=== PATIENT | male | born 1960 | race Caucasian/White ===

== ENCOUNTER 2017-05-07 06:57 | Day surgery (SDC) | payer OTHER ==
[2017-05-06 13:13] VITALS: BMI 40.6
[2017-05-07] MEDS ORDERED: PROPOFOL 20 ML ONE ×3 (07:49)
[2017-05-07] MEDS ORDERED: LIDOCAINE HCL 2% (20ML MULTI-DOSE VIAL) NR ONE (07:50)
[2017-05-07 08:31] VITALS: TEMP 97.7
--- NOTE | 2017-05-07 08:31 | PROC ---
Endoscopy Procedure Endoscopy procedure completed. Please see scanned procedure report.
[2017-05-07 09:25] VITALS: BP 136/60; PULSE 64
--- NOTE | 2017-05-08 12:50 | PATH ---
Surgical Pathology Report Patient Name: DHAVAL MUÑOZ [facility]. Rec. #: [id number] /Age/Gender: 1960 (Age: 56) / M Account: [id number] Location: U-ENDOSCOPY Taken: 05/07/2017 Received: 05/07/2017 Reported: 05/08/2017 Physicians: Golden Mcqueen M.D. Specimen(s) Received A: SECOND PORTION OF DUODENUM BX B: BX ANTRUM/BODY C: BX GE JUNCTION Clinical History The way Preoperative diagnosis: GERD Postoperative diagnosis: Gastritis Final Diagnosis A. DUODENUM, SECOND PORTION, BIOPSY: DUODENAL MUCOSA WITHOUT SIGNIFICANT PATHOLOGIC FINDINGS. B. STOMACH, ANTRUM/BODY, BIOPSY: GASTRIC ANTRAL AND BODY MUCOSA WITH MILD CHRONIC GASTRITIS. IMMUNOHISTOCHEMICAL STAIN FOR H. PYLORI IS NEGATIVE. C. GASTROESOPHAGEAL (GE) JUNCTION, BIOPSY: SQUAMOCOLUMNAR MUCOSA WITH MILD CHRONIC INFLAMMATION AND CHANGES OF MILD TO MODERATE REFLUX ESOPHAGITIS. NO INTESTINAL METAPLASIA OR DYSPLASIA IDENTIFIED. Electronically Signed Christi Vargas M.D. Gross Description A. Received in formalin, labeled "biopsy second portion of duodenum" are 2 knight, irregular portions of soft tissue measuring 0.3 and 0.4 cm. in greatest dimension. The specimens are submitted in toto in one cassette. B. Received in formalin, labeled "biopsy antrum/body" are 3 knight, irregular portions of soft tissue ranging from 0.1-0.4 cm. in greatest dimension. The specimens are submitted in toto in one cassette. C. Received in formalin, labeled "biopsy GE junction" are 3 knight, irregular portions of soft tissue ranging from 0.3-0.5 cm. in greatest dimension. The specimens are submitted in toto in one cassette. DL/05/07/2017 saudi05/07/2017
== END 2017-05-07 09:25 | disposition home or self-care (01) ==
LOC: JASU-ENDO 06:57
PROVIDERS: ATTEND Internal Medicine Gastroenterology
PROC: 0DB68ZX Excision of Stomach, Via Natural or Artificial Opening Endoscopic, Diagnostic (ICD-10-PCS; 2017-05-07)
PROC: 0DB58ZX Excision of Esophagus, Via Natural or Artificial Opening Endoscopic, Diagnostic (ICD-10-PCS; 2017-05-07)
PROC: 0DB98ZX Excision of Duodenum, Via Natural or Artificial Opening Endoscopic, Diagnostic (ICD-10-PCS; principal; 2017-05-07 08:00)
DX: K29.70 Gastritis, unspecified, without bleeding (principal)
CPT/HCPCS: 88305-TC; 88342-TC

== ENCOUNTER 2017-05-24 11:49 | Emergency (ER) | payer OTHER ==
[2017-05-24 12:01] VITALS: TEMP 98.5; BMI 40.6
--- NOTE | 2017-05-24 12:19 | PDOC ---
Attending Attestation - Resident Resident Name: Modesto Banegas - HPI HPI: 05/26/17 02:15 Pt presents to the ED complaining of pleuritic chest pain. Pain has been intermittent for several days. Denies fever, nausea or vomiting. multiple cardiac risk factors, as described in previous note. - Physicial Exam PE: 05/26/17 02:51 Agree with resident exam. Patient is well appearing, in no acute distress. Lungs are clear. - Medical Decision Making 05/26/17 02:51 Pt presents to the ED complaining of chest pain. EKG is unchanged, initial troponin is negative, labs are otherwise normal. Case discussed with patient's agricultural service worker, who believes that this pain is chronic and that the patient can be safely discharged with follow up in his office tomorrow.
[2017-05-24 12:50] LABS: BASO % 1.1 % (0-2.0); EOS % 2.4 % (0-4.5); HEMATOCRIT 44.5 % (35.4-49); HEMOGLOBIN 14.5 GM/dl (11.7-16.9); LYMPH % 24.9 % (8-40); MCH 28.3 pg (25.7-33.7); MCHC 32.7 g/dl (32.0-35.9); MEAN CELL VOLUME 86.6 fl (80-96); MEAN PLT VOLUME 10.3 fl (7.5-11.1); NEUT % 65.6 % (42.8-82.8); PLATELET COUNT 213 K/MM3 (134-434); RBC 5.13 M/mm3 (4.00-5.60); RDW 12.3 % (11.9-15.9); WHITE BLOOD COUNT 6.8 K/mm3 (4.0-10.8)
--- NOTE | 2017-05-24 12:57 | PDOC ---
History of Present Illness - General Chief Complaint: Chest Pain Stated Complaint: SOB, CHEST PAIN Time Seen by Provider: 05/24/17 12:19 History Source: Patient Exam Limitations: No Limitations - History of Present Illness Initial Comments: 05/24/17 12:54 The patient is a 56M with a PMH of HTN, DM, and a-fib in the past (not on blood thinners) who presents to the ER with complaints of 2 days of difficulty taking a deep breath and associated CP. The patient states that he feels like "he cannot take a deep breath". He occasionally has a sensation of chest pain which is described as stabbing, not better or worse with anything, no radiation, located in his L anterior chest, and lasts for only a few seconds. He denies any cough, nausea, vomiting, fever, or chills. The patient's partner reveals that 2 days ago, his neighbor called him over because she was not feeling well and in front of him. The patient denies any stressors 2/2 to this but the partner states he is "acting differently" and "not himself". Past History - Past Medical History Allergies/Adverse Reactions: Allergies Allergy/AdvReac Type Severity Reaction Status Date / Time No Known Drug Allergies Allergy Verified 05/24/17 11:50 Home Medications: Ambulatory Orders Amlodipine/Valsartan/Hcthiazid [Exforge Hct 10-320-25 mg Tab] 1 tab PO DAILY Esomeprazole Magnesium [Nexium 24Hr] 40 mg PO DAILY 05/06/17 Metoprolol Succinate [Toprol Xl] 150 mg PO BID 05/06/17 Multivitamin [One Daily] 1 each PO DAILY 05/06/17 [place]-3 Acid Ethyl Esters [Lovaza] 1 gm PO BID 05/06/17 Sitagliptin Phosphate [Januvia] 100 mg PO DAILY 05/06/17 Amoxicillin - [Amoxicillin 500mg Capsule -] 500 mg PO TID 05/24/17 Aspirin [Ecotrin] 325 mg PO HS 05/24/17 Fenofibrate Nanocrystallized [Tricor] 145 mg PO DAILY 05/24/17 Anemia: No Asthma: No Cancer: No Cardiac Disorders: Yes (TRANSIENT HX OF ATRIAL FIBRILLATION) CVA: No COPD: No CHF: No DVT: No Dementia: No Diabetes: Yes (NIDDM) GI Disorders: Yes (CHRONIC GASTRITIS, COLON POLYPS) Disorders: No HTN: Yes Hypercholesterolemia: Yes (DYLIPIDEMIA) Liver Disease: No Seizures: No Thyroid Disease: No - Surgical History Abdominal Surgery: Yes (UMBILICAL HERNIA WITH MESH PLACED) Appendectomy: No Cardiac Surgery: No Cholecystectomy: Yes Lung Surgery: No Neurologic Surgery: No Orthopedic Surgery: Yes (ROTATOR CUFF REPAIR , LEFT ELBOW SX) - Immunization History Immunization Up to Date: Yes - Suicide/Smoking/Psychosocial Hx Smoking History: Former smoker Have you smoked in the past 12 months: No If you are a former smoker, when did you quit?: 30YRS AGO Information on smoking cessation initiated: No Hx Alcohol Use: No Drug/Substance Use Hx: No Substance Use Type: None Hx Substance Use Treatment: No Review of Systems - Review of Systems Able to Perform ROS?: Yes Comments:: 05/24/17 13:01 GENERAL/CONSTITUTIONAL: No fever or chills. No weakness. HEAD, EYES, EARS, NOSE AND THROAT: No change in vision. No ear pain or discharge. No sore throat. CARDIOVASCULAR: Positive for chest pain. No palpitations or lightheadedness. RESPIRATORY: Positive for shortness of breath. No cough, wheezing, or hemoptysis. GASTROINTESTINAL: No nausea, vomiting, diarrhea, constipation, or abdominal pain. GENITOURINARY: No dysuria, frequency, hematuria, or change in urination. MUSCULOSKELETAL: No joint or muscle swelling or pain. No neck or back pain. SKIN: No rash or lesions. NEUROLOGIC: No headache, numbness, tingling, weakness, loss of consciousness, or change in strength/sensation. ENDOCRINE: No increased thirst. No abnormal weight change. HEMATOLOGIC/LYMPHATIC: No anemia, easy bleeding, or history of blood clots. ALLERGIC/IMMUNOLOGIC: No hives or skin allergy. Is the patient limited Peruvian proficient: No *Physical Exam - Vital Signs Last Vital Signs Temp Pulse Resp BP Pulse Ox 98.5 F 64 18 176/90 98 05/24/17 11:50 05/24/17 11:50 05/24/17 11:50 05/24/17 11:50 05/24/17 11:50 - Physical Exam Comments: 05/24/17 13:02 GENERAL: Well developed, well nourished. Awake and alert. No acute distress. HEENT: Normocephalic, atraumatic. Hearing grossly normal. Moist mucous membranes. PERRLA, EOMI. No conjunctival pallor. Sclera are non-icteric. NECK: Supple. Full ROM. No JVD. CARDIOVASCULAR: Regular rate and rhythm. No murmurs, rubs, or gallops. PULMONARY: No evidence of respiratory distress. Lungs clear to auscultation bilaterally. No wheezing, rales or rhonchi. ABDOMINAL: Soft. Non-tender. Non-distended. No rebound or guarding. GENITOURINARY: No CVA tenderness bilaterally. MUSCULOSKELETAL: Normal range of motion at all joints. No bony deformities or tenderness. EXTREMITIES: No cyanosis. No clubbing. No edema. No calf tenderness. SKIN: Warm and dry. Normal capillary refill. No rashes. No jaundice. NEUROLOGICAL: Alert, awake, appropriate. Cranial nerves 2-12 intact. Normal speech. Gait is normal without ataxia. PSYCHIATRIC: Cooperative. Good eye contact. Appropriate mood and affect. Heart Score/ECG Review #1 ECG reviewed & interpreted by me at: 13:03 General ECG Interpretation: Sinus Rhythm, Normal Rate, Normal Intervals, No acute ischemic changes Compared to previous ECG there are: No significant change 05/24/17 13:04 NSR Rate 64 TX 164 QRS 84 QTc 418 ED Treatment Course - LABORATORY CBC & Chemistry Diagram: 05/24/17 12:22 05/24/17 12:22 - ADDITIONAL ORDERS Additional order review: 05/24/17 12:22 RBC 5.13 MCV 86.6 MCHC 32.7 RDW 12.3 MPV 10.3 Neutrophils % 65.6 Lymphocytes % 24.9 Monocytes % 6.0 Eosinophils % 2.4 Basophils % 1.1 - RADIOLOGY Radiology Studies Ordered: Category Date Time Status CHEST PA & LAT [RAD] Stat Radiology 05/24/17 12:29 Taken Medical Decision Making - Medical Decision Making 05/24/17 13:04 The patient is a 56M with a PMH of HTN and DM who presents with atypical CP and SOB. EKG is negative. Pending labs/imaging. I have a low concern for ACS as there is a normal EKG but will r/o with troponins. D/t the patient's comorbidities, his disposition may be an admission to r/o cardiac causes of his CP. Cait: Lainey 05/24/17 13:19 CXR negative. CBC, CMP and trop negative. Will page Dr. Retana. 05/24/17 13:28 I have spoken with Dr. Tong and he states that he is familiar with this patient who presents with CP, and usually a negative EKG and labs. He will f/u outpatient. Pt agrees and is ready for d/c. *DC/Admit/Observation/Transfer Diagnosis at time of Disposition: Atypical chest pain - Discharge Dispostion Disposition: HOME Condition at time of disposition: Stable Admit: No - Referrals Referrals: Javad Aguilar MD [Primary Care Provider] - - Patient Instructions Printed Discharge Instructions: DI for Atypical Chest Pain Additional Instructions: Please return to the ER if symptoms persist, worsen, or new symptoms arise. Please follow up with Dr. Hanks. Call his office tomorrow to make an appointment. Please return to the ER if you have any signs or symptoms of chest pain, shortness of breath, uncontrollable fever, chills, nausea, vomiting, numbness, tingling, or weakness in any part of your body, changes in vision, or slurred speech. - Post Discharge Activity
[2017-05-24 12:58] LABS: ALBUMIN 3.7 g/dl (3.5-5.0); ALK PHOS 42 U/L (32-92); ANION GAP 7 (8-16); BILIRUBIN,TOTAL 0.7 mg/dl (0.2-1.0); BLOOD UREA NITROGEN 12 mg/dl (7-18); CALCIUM 9.2 mg/dl (8.4-10.2); CHLORIDE 99 mmol/L (98-107); CO2 26 mmol/L (22-28); CREATININE 0.8 mg/dl (0.6-1.3); GLUCOSE,RANDOM 242 mg/dl (74-106); SGOT/AST 47 U/L (10-42); SGPT/ALT 48 U/L (10-40); SODIUM 132 mmol/L (136-145); TOT PROT 6.7 g/dl (6.4-8.3)
[2017-05-24 13:15] LABS: ACTIVATED PTT 28.8 SECONDS (24.0-38.9)
[2017-05-24 13:19] VITALS: BP 150/89; PULSE 58
[2017-05-24 13:19] LABS: INR 1.13 (0.82-1.09); PROTHROMBIN TIME (PATIENT) 12.6 SEC (10.2-13.0)
--- NOTE | 2017-05-25 14:03 | EKG ---
Test Reason : Blood Pressure : / mmHG Vent. Rate : 064 BPM Atrial Rate : 064 BPM P-R Int : 164 ms QRS Dur : 084 ms QT Int : 406 ms P-R-T Axes : 038 -01 023 degrees QTc Int : 418 ms NORMAL SINUS RHYTHM NONSPECIFIC T WAVE ABNORMALITY WHEN COMPARED WITH ECG OF 22-DEC-2014 19:34, VENT. RATE HAS DECREASED BY 41 BPM Confirmed by SHANITA SAN MD ([id number]) on 05/25/2017 2:03:10 PM Referred By: THIAGO Confirmed By:SHANITA SAN MD
== END 2017-05-24 13:41 | disposition home or self-care (01) ==
LOC: FER 11:49
DX: R07.89 Other chest pain (principal); I10 Essential (primary) hypertension; E78.5 Hyperlipidemia, unspecified; I48.91 Unspecified atrial fibrillation
CPT/HCPCS: 36415; 71046-TC-FY; 80053; 82550; 84484; 85025; 85610; 85730; 93005; 99284-25

== ENCOUNTER 2017-06-11 18:18 | Emergency (ER) | payer OTHER ==
[2017-06-11 18:29] VITALS: BP 182/110; TEMP 98; BMI 40.6
--- NOTE | 2017-06-11 18:29 | PDOC ---
Rapid Medical Evaluation Time Seen by Provider: 06/11/17 18:21 Medical Evaluation: Allergies Allergy/AdvReac Type Severity Reaction Status Date / Time No Known Drug Allergies Allergy Verified 05/24/17 11:50 06/11/17 18:21 The patient presents with a chief complaint of: Difficulty breathing, sent by Dr. Aguilar to r/o PE. Pt. states that he feels like he just cant catch is breath. Been feeling short of breath for two weeks. Admits to dry cough. No pulmonary PMH. Hx of HTN, HLD, GERD. Recent cath done 05/30/17 at [facility] and states there were no blockages. I have performed a brief in-person evaluation of this patient; Pertinent physical exam findings: ambulatory, in no respiratory distress. BP 180 /110. CTAB. RRR I have ordered the following: CBC, CMP, D-dimer, troponin, pt/inr, BNP, EKG, Chest x-ray The patient will proceed to the ED for further evaluation. Discharge Disposition - Referrals Referrals: Javad Aguilar MD [Primary Care Provider] - - Patient Instructions - Post Discharge Activity
[2017-06-11 19:04] LABS: BASO % 1.4 % (0-2.0); EOS % 2.6 % (0-4.5); HEMATOCRIT 47.7 % (35.4-49); HEMOGLOBIN 16.1 GM/dL (11.7-16.9); LYMPH % 29.5 % (8-40); MCH 28.6 pg (25.7-33.7); MCHC 33.7 g/dl (32.0-35.9); MEAN CELL VOLUME 84.9 fl (80-96); MEAN PLT VOLUME 9.6 fl (7.5-11.1); MONO % 7.3 % (3.8-10.2); NEUT % 59.2 % (42.8-82.8); PLATELET COUNT 258 K/MM3 (134-434); RBC 5.62 M/mm3 (4.00-5.60); RDW 13.5 % (11.9-15.9)
--- NOTE | 2017-06-11 19:27 | PDOC ---
History of Present Illness - General Chief Complaint: Shortness of Breath Stated Complaint: PCP SENT/BLOOD CLOT Time Seen by Provider: 06/11/17 18:21 - History of Present Illness Initial Comments: 06/11/17 19:44 The patient is a 56 year old male with a history of HTN, HLD, DM who presents for evaluation of SOB by his PCP. The patient reports a 2 week history of worsening SOB. He states that he recently had a cardiac cath and endoscopy on which were reportedly negative for any acute pathology. The patient's primary sent him to the ED for evaluation for concern for PE. The patient denies any chest pain, leg swelling, or recent long travel or immobilization. He otherwise denies fevers, chills, nausea, vomiting, abdominal pain, or changes with urination or bowel movements. Past History - Past Medical History Allergies/Adverse Reactions: Allergies Allergy/AdvReac Type Severity Reaction Status Date / Time No Known Drug Allergies Allergy Verified 06/11/17 18:22 Home Medications: Ambulatory Orders Amlodipine/Valsartan/Hcthiazid [Exforge Hct 10-320-25 mg Tab] 1 tab PO DAILY Esomeprazole Magnesium [Nexium 24Hr] 40 mg PO DAILY 05/06/17 Metoprolol Succinate [Toprol Xl] 150 mg PO BID 05/06/17 Multivitamin [One Daily] 1 each PO DAILY 05/06/17 [place]-3 Acid Ethyl Esters [Lovaza] 1 gm PO BID 05/06/17 Sitagliptin Phosphate [Januvia] 100 mg PO DAILY 05/06/17 Amoxicillin - [Amoxicillin 500mg Capsule -] 500 mg PO TID 05/24/17 Aspirin [Ecotrin] 325 mg PO HS 05/24/17 Fenofibrate Nanocrystallized [Tricor] 145 mg PO DAILY 05/24/17 Anemia: No Asthma: No Cancer: No Cardiac Disorders: Yes (TRANSIENT HX OF ATRIAL FIBRILLATION) CVA: No COPD: No CHF: No DVT: No Dementia: No Diabetes: Yes (NIDDM) GI Disorders: Yes (CHRONIC GASTRITIS, COLON POLYPS) Disorders: No HTN: Yes Hypercholesterolemia: Yes (DYLIPIDEMIA) Liver Disease: No Seizures: No Thyroid Disease: No - Surgical History Abdominal Surgery: Yes (UMBILICAL HERNIA WITH MESH PLACED) Appendectomy: No Cardiac Surgery: No Cholecystectomy: Yes Lung Surgery: No Neurologic Surgery: No Orthopedic Surgery: Yes (ROTATOR CUFF REPAIR , LEFT ELBOW SX) - Immunization History Immunization Up to Date: Yes - Suicide/Smoking/Psychosocial Hx Smoking History: Former smoker Have you smoked in the past 12 months: No If you are a former smoker, when did you quit?: 30YRS AGO Information on smoking cessation initiated: No Hx Alcohol Use: No Drug/Substance Use Hx: No Substance Use Type: None Hx Substance Use Treatment: No Review of Systems - Review of Systems Comments:: 06/11/17 19:47 Constitutional: No fevers, chills, fatigue, malaise HEENT: No Rhinorrhea, nasal congestion, visual changes Cardiovascular: No chest pain, syncope, palpitations, lightheadedness Respiratory: Nonproductive cough, SOB. No Hemoptysis, Gastrointestinal: No Abdominal pain, Nausea, Vomiting, Constipation, Diarrhea, Melena Genitourinary: No Dysuria, Frequency, Urgency, Hesitancy, Hematuria, Flank pain Musculoskeletal: No Myalgia, arthralgia Skin: No rashes, itching, bruising, pallor Neurologic: No Headache, Dizziness, Numbness, Weakness, or Tingling Psychiatric: No Hallucinations. No SI or HI *Physical Exam - Vital Signs Last Vital Signs Temp Pulse Resp BP Pulse Ox 98 F 86 19 182/110 97 06/11/17 18:22 06/11/17 18:22 06/11/17 18:22 06/11/17 18:22 06/11/17 18:22 - Physical Exam Comments: 06/11/17 19:47 General Appearance: Nourished. Obese. No Apparent Distress HEENT: EOMI, ESTEFANI. No Pharyngeal Erythema, Tonsillar Exudate, Tonsillar Erythema Neck: No Cervical Lymphadenopathy Respiratory/Chest: Lungs Clear, Normal Breath Sounds. No Crackles, Rales, Rhonchi, Wheezing Cardiovascular: Regular Rhythm, Regular Rate. No JVD, Murmur, Gallops, Rubs Gastrointestinal/Abdominal: Normal Bowel Sounds, Soft. No Guarding, Rebound, Tenderness Musculoskeletal: No CVA Tenderness Extremity: No notable lower extremity edema. Normal Capillary Refill Integumentary: Normal Color, Dry, Warm Neurologic: Fully Oriented, Alert, Normal Mood/Affect, Normal Response, Heart Score/ECG Review #1 ECG reviewed & interpreted by me at: 19:48 General ECG Interpretation: Sinus Rhythm, Normal Rate, Normal Intervals, No acute ischemic changes ED Treatment Course - LABORATORY CBC & Chemistry Diagram: 06/11/17 18:51 06/11/17 18:51 - ADDITIONAL ORDERS Additional order review: 06/11/17 18:51 RBC 5.62 H MCV 84.9 MCHC 33.7 RDW 13.5 MPV 9.6 Neutrophils % 59.2 Lymphocytes % 29.5 Monocytes % 7.3 Eosinophils % 2.6 Basophils % 1.4 Medical Decision Making - Medical Decision Making 06/11/17 19:48 The patient is a 56 year old male with a history of HTN, HLD, DM who presents for evaluation of SOB by his PCP. Differential includes but is not limited to: PE, CHF, COPD, pneumonia, infectious, metabolic derangement. Given the patient' s prolonged symptoms we will obtain a cbc, cmp, bnp, troponin, and d-dimer to evaluate for other etiologies. We will continue to monitor and reassess in the meantime. 06/11/17 21:08 CBC, cmp, bnp, troponin, d-dimer are unremarkable. Chest plain film is unremarkable as preliminarily read by the ER physician pending official radiology read. The patient reports some improvement in his symptoms after a duoneb treatment. We are comfortable discharging the patient home with primary care provider follow up tomorrow. We discussed the results and the plan with the patient who voiced understanding and is agreeable with the plan. *DC/Admit/Observation/Transfer Diagnosis at time of Disposition: SOB (shortness of breath) - Discharge Dispostion Disposition: HOME Condition at time of disposition: Good Admit: No - Referrals Referrals: Javad Aguilar MD [Primary Care Provider] - - Patient Instructions Printed Discharge Instructions: DI for Shortness of Breath Additional Instructions: Please return to the ER if you experience concerning or worsening symptoms including worsening difficulty breathing, fevers, or chest pain. Your lab results and x-rays were normal here in the ER. Your blood work does not show any signs of blood clot in your lungs. Please call to schedule a follow up appointment with your primary care provider within 2-3 days to discuss further management of your symptoms. - Post Discharge Activity
[2017-06-11 19:30] LABS: INR 1.12 (0.82-1.09); PROTHROMBIN TIME (PATIENT) 12.6 SEC (9.98-11.88)
[2017-06-11 19:36] LABS: ALBUMIN 4.1 g/dl (3.4-5.0); ALK PHOS 54 U/L (45-117); ANION GAP 8 (8-16); BILIRUBIN,TOTAL 0.8 mg/dL (0.2-1.0); BLOOD UREA NITROGEN 16 mg/dL (7-18); CALCIUM 9.1 mg/dL (8.5-10.1); CHLORIDE 98 mmol/L (98-107); CO2 28 mmol/L (21-32); CREATININE 1.1 mg/dL (0.7-1.3); GLUCOSE,RANDOM 173 mg/dL (74-106); SGPT/ALT 55 U/L (12-78); SODIUM 134 mmol/L (136-145); TOT PROT 7.9 g/dl (6.4-8.2)
--- NOTE | 2017-06-11 19:36 | PDOC ---
Attending Attestation - Resident Resident Name: Ryland Horn - ED Attending Attestation I have performed the following: I have examined & evaluated the patient, The case was reviewed & discussed with the resident, I agree w/resident's findings & plan, Exceptions are as noted <Waldo Ibarra - Last Filed: 06/11/17 19:36> - HPI HPI: 06/11/17 19:44 The patient is a 56 year old male, with a significant past medical history of hypertension, hyperlipidemia, and diabetes, who presents to the emergency department sent by Dr. Aguilar for evaluation of 2 weeks of worsening shortness of breath. Patient reports his PCP sent him out of concern of possible CHF vs PE. Patient states he feels like he cannot catch his breath. He denies any associated chest pain, diaphoresis, palpitations, or lower extremity edema. He denies any recent travel or sick contacts. Patient endorses a dry cough, but denies any fever, chills, headache, or dizziness. Patient reports recent Cardiac Catheterization at [facility] [place] on 05/30/17, which demonstrated no blockages. He denies any abdominal pain, nausea, or vomiting. He denies any dysuria, hematuria, frequency, or urgency. Allergies: NKDA Past Surgical History: Umbilical hernia repair. Rotator cuff repair, Left elbow surgery, Cholecystectomy Social History: Former smoker. No ETOH or recreational drug use. PCP: Dr. Aguilar - Medical Decision Making 06/11/17 19:44 Documentation prepared by Coleman Falk, acting as certified medical biller for Waldo Ibarra DO. <Coleman Falk - Last Filed: 06/11/17 19:44>
[2017-06-11 19:38] LABS: N-TERMINAL BNP 31.89 pg/ml (5-125)
[2017-06-11 19:47] LABS: POTASSIUM 4.3 mmol/L (3.5-5.1); SGOT/AST 61 U/L (15-37)
[2017-06-11] MEDS ORDERED: ALBUTEROL SO4 2.5/IPRATROPIUM 0.5 INH SOL 3 ML VIAL.NEB. NEB ONE ×2 (20:23→20:29)
[2017-06-11 21:19] VITALS: PULSE 78
--- NOTE | 2017-06-12 09:35 | EKG ---
Test Reason : Blood Pressure : / mmHG Vent. Rate : 082 BPM Atrial Rate : 082 BPM P-R Int : 132 ms QRS Dur : 086 ms QT Int : 374 ms P-R-T Axes : 047 001 043 degrees QTc Int : 436 ms NORMAL SINUS RHYTHM NORMAL ECG WHEN COMPARED WITH ECG OF 24-MAY-2017 11:58, NO SIGNIFICANT CHANGE WAS FOUND Confirmed by MIKE CANCINO MD ([id number]) on 06/12/2017 9:35:23 AM Referred By: Confirmed By:MIKE CANCINO MD
== END 2017-06-11 21:19 | disposition home or self-care (01) ==
LOC: JER 18:18
PROC: 3E0F7GC Introduction of Other Therapeutic Substance into Respiratory Tract, Via Natural or Artificial Opening (ICD-10-PCS; principal; 2017-06-11)
DX: R06.02 Shortness of breath (principal); I25.10 Atherosclerotic heart disease of native coronary artery without angina pectoris; Z98.61 Coronary angioplasty status; I10 Essential (primary) hypertension; E11.9 Type 2 diabetes mellitus without complications; Z79.84 Long term (current) use of oral hypoglycemic drugs; E78.00 Pure hypercholesterolemia, unspecified; K21.9 Gastro-esophageal reflux disease without esophagitis; K29.50 Unspecified chronic gastritis without bleeding; Z79.82 Long term (current) use of aspirin
CPT/HCPCS: 36415; 71046-TC-FY; 80053; 82550; 83880; 84484; 85025; 85379; 85610; 93005; 93010; 99282-25

== ENCOUNTER 2019-03-27 12:10 | Emergency (ER) | payer OTHER ==
[2019-03-27 12:28] VITALS: BMI 40.6
[2019-03-27] MEDS ORDERED: SODIUM CHLORIDE 1,000 ML IV STA (13:05)
--- NOTE | 2019-03-27 13:26 | PDOC ---
History of Present Illness - General Chief Complaint: Respiratory Stated Complaint: COUGH, BACK PAIN Time Seen by Provider: 03/27/19 12:21 History Source: Patient Exam Limitations: No Limitations - History of Present Illness Initial Comments: 03/27/19 13:21 CHIEF COMPLAINT: 58-year-old man complaining of left paralumbar pain on and off for a couple of days HISTORY OF PRESENT ILLNESS: 58-year-old man Past medical history of hypertension, diabetes, hyperlipidemia, atrial fibrillation Recent treatment for wheezing and cough with prednisone, recently completed course Patient presents now complaining of left paralumbar pain in the mid lumbar region, intermittent, not related to movement or breathing, sometimes comes very sharp and sudden. Patient states the pain is 7 out of 10, took Advil without relief. No urinary complaints, no hematuria, no dysuria. No change in pain with movement. No change in pain with deep breathing. Cough remains persistent, nonproductive, no sputum, no fever, no pleuritic chest pain. REVIEW OF SYSTEMS: GENERAL/CONSTITUTIONAL: No fever or chills. No weakness. No weight change. HEAD, EYES, EARS, NOSE AND THROAT: No change in vision. No ear pain or discharge. No sore throat. CARDIOVASCULAR: No chest pain or shortness of breath. RESPIRATORY: Positive cough and recent wheezing. No hemoptysis. No pleuritic pain. GASTROINTESTINAL: No nausea, vomiting, diarrhea or constipation. No rectal bleeding. GENITOURINARY: No dysuria, frequency, or change in urination. MUSCULOSKELETAL: Positive left paralumbar pain, not much change with movement. No neck pain. SKIN AND BREASTS: No rash or easy bruising. NEUROLOGIC: No headache, vertigo, loss of consciousness, or loss of sensation. PSYCHIATRIC: No depression or anxiety. ENDOCRINE: No increased thirst. No abnormal weight change. HEMATOLOGIC/LYMPHATIC: No anemia, easy bleeding, or history of blood clots. ALLERGIC/IMMUNOLOGIC: No hives or skin allergy. No latex allergy. Past History - Past Medical History Allergies/Adverse Reactions: Allergies Allergy/AdvReac Type Severity Reaction Status Date / Time No Known Drug Allergies Allergy Verified 03/27/19 12:13 Home Medications: Ambulatory Orders Amlodipine/Valsartan/Hcthiazid [Gtgfl-Rqehx-Eocd 10-320-25 mg] 1 each PO DAILY 03/27/19 Aspirin [Aspirin EC] 325 mg PO DAILY 03/27/19 Beta-Carotene(A) W-C and E/Min [Ocuvite (Nf) -] 1 tab PO DAILY 03/27/19 Carvedilol 25 mg PO BID 03/27/19 Cholecalciferol (Vitamin D3) [Vitamin D -] 1,000 unit PO DAILY 03/27/19 Esomeprazole Magnesium [Nexium 24Hr] 40 mg PO ASDIR 03/27/19 Fenofibrate Nanocrystallized [Tricor] 145 mg PO DAILY 03/27/19 Hydralazine HCl 50 mg PO TID 03/27/19 Levothyroxine [Synthroid -] 25 mcg PO DAILY 03/27/19 Naproxen [Naprosyn -] 500 mg PO BID PRN #14 tablet 03/27/19 [place]-3 Acid Ethyl Esters [Lovaza -] 4,000 mg PO DAILY 03/27/19 Rosuvastatin Calcium [Crestor] 10 mg PO DAILY 03/27/19 Semaglutide [Ozempic] 0.25 mg SQ WEEKLY 03/27/19 Anemia: No Asthma: No Cancer: No Cardiac Disorders: Yes (TRANSIENT HX OF ATRIAL FIBRILLATION) CVA: No COPD: No CHF: No DVT: No Dementia: No Diabetes: Yes (NIDDM) GI Disorders: Yes (CHRONIC GASTRITIS, COLON POLYPS) Disorders: No HTN: Yes Hypercholesterolemia: Yes (DYSLIPIDEMIA) Liver Disease: No Seizures: No Thyroid Disease: No - Surgical History Abdominal Surgery: Yes (UMBILICAL HERNIA WITH MESH PLACED) Appendectomy: No Cardiac Surgery: No Cholecystectomy: Yes Lung Surgery: No Neurologic Surgery: No Orthopedic Surgery: Yes (ROTATOR CUFF REPAIR , LEFT ELBOW SX) - Immunization History Immunization Up to Date: Yes - Psycho Social/Smoking Cessation Hx Smoking History: Never smoked Have you smoked in the past 12 months: No If you are a former smoker, when did you quit?: 30YRS AGO Information on smoking cessation initiated: No Hx Alcohol Use: No Drug/Substance Use Hx: No Substance Use Type: None Hx Substance Use Treatment: No *Physical Exam - Vital Signs Last Vital Signs Temp Pulse Resp BP Pulse Ox 98.6 F 89 20 157/93 96 03/27/19 12:10 03/27/19 12:10 03/27/19 12:10 03/27/19 12:10 03/27/19 12:10 - Physical Exam 12/08/19 13:24 GENERAL: The patient is awake, alert, and fully oriented, in no acute distress. He is obese with a large, round abdomen. HEAD: Normal with no signs of trauma. EYES: Pupils equal, round and reactive to light, extraocular movements intact, sclera anicteric, conjunctiva clear. ENT: Ears normal, nares patent, oropharynx clear without exudates. Moist mucous membranes. NECK: Normal range of motion, supple without lymphadenopathy, JVD, or masses. LUNGS: Breath sounds equal, clear to auscultation bilaterally. No wheezes, and no crackles. No discomfort on deep inspiration. No splinting. No wheezing. HEART: Regular rate and rhythm, normal S1 and S2 without murmur, rub or gallop. ABDOMEN: Soft, nontender, normoactive bowel sounds. No guarding, no rebound. No masses. BACK: There is no midline lumbar tenderness. There is no paralumbar tenderness. There is no CVA tenderness. The patient points to the region posterior to the left kidney when describing the area of the pain. EXTREMITIES: Normal range of motion, no edema. No clubbing or cyanosis. No cords, erythema, or tenderness. NEUROLOGICAL: Cranial nerves II through XII grossly intact. Normal speech, normal gait. PSYCH: Normal mood, normal affect. SKIN: Warm, Dry, normal turgor, no rashes or lesions noted. ED Treatment Course - LABORATORY CBC & Chemistry Diagram: 03/27/19 13:21 03/27/19 13:21 - RADIOLOGY Radiology Studies Ordered: Category Date Time Status CHEST PA & LAT [RAD] Stat Radiology 03/27/19 13:05 Ordered Medical Decision Making - Medical Decision Making 03/27/19 16:38 Patient is 58 years old with atherosclerotic risk factors, presents complaining of left paralumbar pain for several days. The pain is moderately severe, not better after Aleve. There is no change with motion, breathing, or coughing. Of note, patient did have a cough for several days, saw his doctor, Dr. Aguilar, and was prescribed several days of prednisone which he completed. He continues to have some cough, but now is having this pain in his lower back so he comes to the emergency room for evaluation. On examination, he is afebrile. Heart and lung examination is normal. There is no bony tenderness or muscular tenderness in the lumbar region where he is feeling the pain. Urinalysis is normal with no hematuria. Chemistry and CBC is notable only for mild leukocytosis with a white blood cell count of 11. There is no left shift. Patient denies any fever. Given the nonspecific nature of the pain in a patient with risk factors for vascular disease, CT angiogram was performed. The aorta is normal. The CT is notable for an absence of other significant pathology in any of the organs visualized. Impression: Mid lumbar back pain of uncertain etiology. Possibly musculoskeletal. No evidence of kidney disease, aortic disease, or other serious pathology based upon the detailed work-up performed in the emergency department. Patient has follow-up with Dr. Aguilar scheduled on and he states he will follow-up as planned. He was advised to Dr. Aguilar has access to all of the hospital results in the computer system. Vital Signs (72 hours) 03/27/19 12:10 Temperature 98.6 F Pulse Rate 89 Respiratory 20 Rate Blood Pressure 157/93 O2 Sat by Pulse 96 Oximetry (%) Laboratory Results - last 24 hr 03/27/19 03/27/19 03/27/19 13:16 13:21 13:21 WBC 11.0 H RBC 5.25 Hgb 15.6 Hct 46.6 MCV 88.8 MCH 29.7 MCHC 33.5 RDW 12.2 Plt Count 325 D MPV 9.0 D Absolute Neuts (auto) 6.9 Neutrophils % 61.9 Lymphocytes % 29.3 Monocytes % 5.7 Eosinophils % 2.0 Basophils % 1.1 Sodium 133 L Potassium 3.8 Chloride 97 L Carbon Dioxide 26 Anion Gap 10 BUN 23.0 H Creatinine 1.1 Est GFR (CKD-EPI)AfAm 84.71 Est GFR (CKD-EPI)NonAf 73.09 Random Glucose 254 H Calcium 9.7 Total Bilirubin 0.9 AST 40 H ALT 42 Alkaline Phosphatase 46 Total Protein 7.2 Albumin 4.1 Urine Color Yellow Urine Appearance Clear Urine pH 5.0 Urine Protein Negative Urine Glucose (UA) Negative Urine Ketones Negative Urine Blood Negative Urine Nitrite Negative Urine Bilirubin Negative Urine Urobilinogen 0.2 Ur Leukocyte Esterase Negative Discharge - Discharge Information Problems reviewed: Yes Clinical Impression/Diagnosis: Lumbar pain Condition: Stable Disposition: HOME - Admission No - Additional Discharge Information Prescriptions: Naproxen [Naprosyn -] 500 mg PO BID PRN #14 tablet PRN Reason: Back pain\ - Follow up/Referral Referrals: Javad Aguilar MD [Primary Care Provider] - 03/31/19 - Patient Discharge Instructions Patient Printed Discharge Instructions: DI for Low Back Pain Additional Instructions: You were evaluated today for back pain. The CAT scan and blood test results are negative. Take Naprosyn 500 mg twice a day with food as needed for pain. Follow-up on with Dr. Aguilar. Return to the emergency department for any severe or progressive symptoms. - Post Discharge Activity
[2019-03-27 13:38] LABS: BASO % 1.1 % (0-2.0); HEMATOCRIT 46.6 % (35.4-49); HEMOGLOBIN 15.6 GM/dl (11.7-16.9); LYMPH % 29.3 % (8-40); MCH 29.7 pg (25.7-33.7); MCHC 33.5 g/dl (32.0-35.9); MEAN CELL VOLUME 88.8 fl (80-96); MONO % 5.7 % (3.8-10.2); NEUT % 61.9 % (42.8-82.8); PLATELET COUNT 325 K/MM3 (134-434); RBC 5.25 M/mm3 (4.00-5.60); RDW 12.2 % (11.9-15.9)
[2019-03-27 13:57] LABS: ALBUMIN 4.1 g/dl (3.4-5.0); BILIRUBIN,TOTAL 0.9 mg/dl (0.2-1); CALCIUM 9.7 mg/dl (8.5-10); CREATININE 1.1 mg/dl (0.55-1.3); POTASSIUM 3.8 mmol/L (3.5-5.1); TOT PROT 7.2 g/dl (6.4-8.2)
[2019-03-27 16:55] VITALS: BP 137/81; PULSE 81; TEMP 97.8
== END 2019-03-27 16:51 | disposition home or self-care (01) ==
LOC: FER 12:10
PROC: 3E0337Z Introduction of Electrolytic and Water Balance Substance into Peripheral Vein, Percutaneous Approach (ICD-10-PCS; principal; 2019-03-27)
DX: M54.5 Low back pain (principal); Z87.891 Personal history of nicotine dependence; G45.9 Transient cerebral ischemic attack, unspecified; E11.9 Type 2 diabetes mellitus without complications; E07.9 Disorder of thyroid, unspecified; I48.91 Unspecified atrial fibrillation; Z79.01 Long term (current) use of anticoagulants; I10 Essential (primary) hypertension
CPT/HCPCS: 36415; 71046-TC-FY; 71275-TC; 74175-TC; 80053; 81003; 85025; 99284-25; J7030

== ENCOUNTER 2020-05-31 05:02 | Day surgery (SDC) | payer OTHER ==
[2020-05-29 12:16] VITALS: BMI 38.2
[2020-05-31 13:10] VITALS: TEMP 98.2
[2020-05-31 13:42] VITALS: BP 116/61; PULSE 62
== END 2020-05-31 13:50 | disposition home or self-care (01) ==
LOC: JASU-ENDO 05:02
PROVIDERS: ATTEND Internal Medicine Gastroenterology
PROC: 0DBM8ZX Excision of Descending Colon, Via Natural or Artificial Opening Endoscopic, Diagnostic (ICD-10-PCS; 2020-05-31)
PROC: 0DBN8ZX Excision of Sigmoid Colon, Via Natural or Artificial Opening Endoscopic, Diagnostic (ICD-10-PCS; principal; 2020-05-31 12:00)
DX: D12.5 Benign neoplasm of sigmoid colon (principal); D12.4 Benign neoplasm of descending colon; K92.1 Melena; K64.8 Other hemorrhoids
CPT/HCPCS: 88305-TC

== ENCOUNTER 2020-07-03 05:28 | Day surgery (SDC) | payer OTHER ==
[2020-07-02 13:50] VITALS: BMI 37.3
[2020-07-03 12:11] VITALS: TEMP 97
[2020-07-03 12:35] VITALS: PULSE 61
[2020-07-03 12:50] VITALS: BP 129/67
== END 2020-07-03 13:12 | disposition home or self-care (01) ==
LOC: JASU-ENDO 05:28
PROVIDERS: ATTEND Internal Medicine Gastroenterology
PROC: 0DB78ZX Excision of Stomach, Pylorus, Via Natural or Artificial Opening Endoscopic, Diagnostic (ICD-10-PCS; principal; 2020-07-03 10:00)
DX: K29.50 Unspecified chronic gastritis without bleeding (principal); K21.9 Gastro-esophageal reflux disease without esophagitis; E11.9 Type 2 diabetes mellitus without complications
CPT/HCPCS: 88305-TC; 88342-TC

== ENCOUNTER 2020-08-01 20:56 | Inpatient (IN) | payer OTHER ==
[2020-08-01 21:16] VITALS: TEMP 98.6; BMI 36.6
[2020-08-01 22:12] LABS: BASO % 0.4 % (0-2.0); EOS % 2.6 % (0-4.5); HEMATOCRIT 46.2 % (35.4-49); HEMOGLOBIN 15.8 GM/dL (11.7-16.9); MCHC 34.2 g/dl (32.0-35.9); MEAN CELL VOLUME 87.7 fl (80-96); MEAN PLT VOLUME 9.2 fl (7.5-11.1); MONO % 6.9 % (3.8-10.2); NEUT % 57.1 % (42.8-82.8); PLATELET COUNT 204 K/MM3 (134-434); RBC 5.27 M/mm3 (4.00-5.60); RDW 13.4 % (11.9-15.9); WHITE BLOOD COUNT 16.6 K/mm3 (4.0-10.0)
[2020-08-01 22:30] LABS: CHLORIDE 102 mmol/L (98-107); SODIUM 138 mmol/L (136-145)
[2020-08-01 22:32] LABS: CALCIUM 10.1 mg/dL (8.5-10.1)
[2020-08-01 22:33] LABS: ANION GAP 7 MMOL/L (8-16); BLOOD UREA NITROGEN 21.9 mg/dL (7-18); CO2 29 mmol/L (21-32); GLUCOSE,RANDOM 180 mg/dL (74-106); MAGNESIUM 2.3 mg/dL (1.8-2.4)
[2020-08-01 22:36] LABS: CREATININE 1.3 mg/dL (0.55-1.3); PHOSPHOROUS 3.3 mg/dL (2.5-4.9); SGOT/AST 27 U/L (15-37); SGPT/ALT 44 U/L (13-61)
[2020-08-01 22:37] LABS: BILIRUBIN,TOTAL 0.5 mg/dL (0.2-1); TOT PROT 7.3 g/dl (6.4-8.2)
[2020-08-01 22:38] LABS: ALK PHOS 56 U/L (45-117)
[2020-08-01 23:38] LABS: LIPASE 311 U/L (73-393)
[2020-08-02 00:20] VITALS: BP 133/74; PULSE 82
== END 2020-08-02 03:01 | disposition home or self-care (01) | DRG 313 ==
LOC: JER 20:56 → JERBED 08-02 00:19
PROVIDERS: ADMIT Internal Medicine; ATTEND Internal Medicine
DX: R07.89 Other chest pain (principal); I10 Essential (primary) hypertension; E11.9 Type 2 diabetes mellitus without complications; E78.5 Hyperlipidemia, unspecified; K29.70 Gastritis, unspecified, without bleeding
CPT/HCPCS: 36415; 71045-TC-FY; 80053; 82550; 83690; 83735; 84100; 84436; 84439; 84443; 84484; 85025; 93005; 93010; 99285-25; C9803; U0003; U0005

== ENCOUNTER 2020-10-10 03:58 | Observation (INO) | payer OTHER ==
[2020-10-10 04:23] VITALS: BMI 37.3
[2020-10-10] MEDS ORDERED: ACETAMINOPHEN 1000 MG/100 ML VIAL (NON FORMULARY) IVPB ONE ×2 (04:45→16:24)
[2020-10-10] MEDS ORDERED: ACETAMINOPHEN INJECTION 100 ML IVPB ONE ×2 (05:05→16:18)
[2020-10-10 05:07] LABS: BASO % 0.5 % (0-2.0); EOS % 0.9 % (0-4.5); HEMATOCRIT 45.3 % (35.4-49); MCH 28.9 pg (25.7-33.7); MCHC 33.1 g/dl (32.0-35.9); MEAN CELL VOLUME 87.4 fl (80-96); MEAN PLT VOLUME 8.8 fl (7.5-11.1); NEUT % 63.6 % (42.8-82.8); PLATELET COUNT 187 10^3/uL (134-434); RBC 5.18 M/mm3 (4.00-5.60); RDW 13.6 % (11.9-15.9)
[2020-10-10 05:30] LABS: CHLORIDE 103 mmol/L (98-107); SODIUM 138 mmol/L (136-145)
[2020-10-10 05:32] LABS: CALCIUM 8.8 mg/dL (8.5-10.1)
[2020-10-10 05:33] LABS: ALBUMIN 4.1 g/dl (3.4-5.0); ANION GAP 7 MMOL/L (8-16); BLOOD UREA NITROGEN 15.3 mg/dL (7-18); CO2 28 mmol/L (21-32); GLUCOSE,RANDOM 168 mg/dL (74-106); LIPASE 173 U/L (73-393); MAGNESIUM 1.8 mg/dL (1.8-2.4)
[2020-10-10 05:36] LABS: CREATININE 0.9 mg/dL (0.55-1.3); SGOT/AST 23 U/L (15-37); SGPT/ALT 37 U/L (13-61)
[2020-10-10 05:37] LABS: BILIRUBIN,TOTAL 0.8 mg/dL (0.2-1); TOT PROT 6.9 g/dl (6.4-8.2)
[2020-10-10 05:38] LABS: ALK PHOS 39 U/L (45-117)
[2020-10-10] MEDS ORDERED: ONDANSETRON 4 MG/2 ML VIAL IVPUSH ONE (05:39)
[2020-10-10] MEDS ORDERED: ONDANSETRON 4 MG/2 ML VIAL ONE (06:03)
[2020-10-10] MEDS ORDERED: PIPERACILLIN/TAZOB 3.375 GM 3.375 GM in DEXTROSE 5%-WATER - 50 ML IVPB ONE (06:12)
[2020-10-10] MEDS ORDERED: morphine CARPU-JECT 4 MG/1 ML DISP.SYRIN IVPUSH ONE (06:13)
[2020-10-10] MEDS ORDERED: SODIUM CHLORIDE 1,000 ML IV SCH (06:15)
[2020-10-10] MEDS ORDERED: PIPERACILLIN/TAZOB 3.375 GM 3.375 GM/50 ML BAG IVPB ONE ×2 (06:20→09:54)
[2020-10-10] MEDS ORDERED: morphine SULFATE 4 MG/ML VIAL ONE (06:24)
[2020-10-10] MEDS ORDERED: SODIUM CHLORIDE 1,000 ML IV STA (07:25)
[2020-10-10] MEDS ORDERED: MORPHINE SULFATE 2 MG/ML VIAL IVPUSH PRN (07:25)
[2020-10-10] MEDS ORDERED: morphine SULFATE 4 MG/ML VIAL IVPUSH PRN (07:25)
[2020-10-10] MEDS ORDERED: TRIMETHOBENZAMIDE HCL 200MG/2ML INJ IM PRN (08:25)
[2020-10-10] MEDS ORDERED: oxyCODONE HCL 5 MG TABLET PO ONE (08:26)
[2020-10-10 09:04] LABS: URINE APPEARANCE CLEAR; URINE BILIRUBIN NEGATIVE (NEGATIVE); URINE COLOR YELLOW; URINE KETONE NEGATIVE (NEGATIVE)
[2020-10-10 09:05] LABS: URINE PROTEIN NEGATIVE (NEGATIVE); URINE UROBILINOGEN 0.2 mg/dL (0.2-1.0)
[2020-10-10 09:06] LABS: EPI CELLS 4.7 /uL (0-25.1); HYALINE CASTS 0.25 /uL (0-3.1); URINE BACTERIA 33.4 /uL (0-1359); URINE GLUCOSE (UA) 3+ (NEGATIVE); URINE LEUK ESTERASE NEGATIVE (NEGATIVE); URINE NITRITE NEGATIVE (NEGATIVE); URINE RBC 5.3 /uL (0-23.9); URINE WBC 5.2 /uL (0-25.8)
[2020-10-10 09:38] LABS: ANISOCYTOSIS 0; HELMET CELLS 0; HOWELL-JOLLY BODIES 0; MACROCYTOSIS 0; OVALOCYTE 0; PLATELET ESTIMATE NORMAL; ROULEAU 0; SICKELED CELLS 0; TARGET CELLS 0; TEAR DROP CELLS 0; TOXIC GRANULATION 0
[2020-10-10] MEDS ORDERED: CARVEDILOL 12.5 MG TABLET (FP) ONE (09:53)
[2020-10-10] MEDS ORDERED: oxyCODONE HCL 5 MG TABLET ONE (09:54)
[2020-10-10] MEDS ORDERED: CARVEDILOL 12.5 MG TABLET (FP) PO SCH (10:00)
[2020-10-10] MEDS ORDERED: PIPERACILLIN/TAZOB 3.375 GM 3.375 GM in DEXTROSE 5%-WATER - 50 ML IVPB SCH (10:00)
[2020-10-10] MEDS ORDERED: INSULIN SLIDING SCALE (NOVOLOG) 1 VIAL SQ SCH (11:00)
[2020-10-10] MEDS ORDERED: KETOROLAC TROMETHAMINE 30 MG/1 ML VIAL IM PRN (11:22)
[2020-10-10] MEDS ORDERED: LIDOCAINE HCL 1%, 10 MG/ML (20ML VIAL) ONE (13:08)
[2020-10-10] MEDS ORDERED: BUPIVACAINE HCL/PF 0.5% (5MG/ML) 10 ML VIAL ONE (13:08)
[2020-10-10] MEDS ORDERED: ONDANSETRON 4 MG/2 ML VIAL IVPUSH PRN (13:41)
[2020-10-10] MEDS ORDERED: morphine SULFATE 4 MG/ML VIAL IVPB PRN (13:41)
[2020-10-10] MEDS ORDERED: fentaNYL CITRATE 250 MCG/5 ML VIAL ONE (13:54)
[2020-10-10] MEDS ORDERED: LIDOCAINE HCL/PF 2% SDV 5ML VIAL ONE (13:54)
[2020-10-10] MEDS ORDERED: ROCURONIUM BROMIDE 50 MG/5 ML SYRINGE ONE (13:55)
[2020-10-10] MEDS ORDERED: MIDAZOLAM HCL 2 MG/2 ML SINGLE DOSE VIAL ONE (13:55)
[2020-10-10] MEDS ORDERED: PROPOFOL 20 ML ONE ×2 (13:55)
[2020-10-10] MEDS ORDERED: NEOSTIGMINE METHYLSULFATE 0.5 MG/ML - 10 ML MDV ONE (14:24)
[2020-10-10] MEDS ORDERED: GLYCOPYRROLATE 0.2 MG/1 ML VIAL ONE (14:24)
[2020-10-10] MEDS: PIPERACILLIN/TAZOB 4.5 GM 4.5 GM in DEXTROSE 5%-WATER 100 ML IVPB SCH (17:04)
[2020-10-10] MEDS: INSULIN SLIDING SCALE (NOVOLOG) 1 VIAL SQ SCH ×2 (17:37→22:05)
[2020-10-10] MEDS: SODIUM CHLORIDE 1,000 ML IV SCH (17:39)
[2020-10-10] MEDS ORDERED: PIPERACILLIN/TAZOB 4.5 GM 4.5 GM in DEXTROSE 5%-WATER 100 ML IVPB SCH (18:00)
[2020-10-10] MEDS: CARVEDILOL 12.5 MG TABLET (FP) PO SCH (21:15)
[2020-10-11] MEDS ORDERED: DEXTROSE 5%-WATER 100 ML IVPB ONE ×3 (01:27→16:51)
[2020-10-11] MEDS ORDERED: PIPERACILLIN/TAZOBACTAM 4.5 GM VIAL IVPB ONE ×3 (01:27→16:51)
[2020-10-11] MEDS: PIPERACILLIN/TAZOB 4.5 GM 4.5 GM in DEXTROSE 5%-WATER 100 ML IVPB SCH ×3 (01:42→17:00)
[2020-10-11] MEDS: INSULIN SLIDING SCALE (NOVOLOG) 1 VIAL SQ SCH ×4 (07:41→21:55)
[2020-10-11 08:57] LABS: HEMATOCRIT 40.1 % (35.4-49); HEMOGLOBIN 13.6 GM/dL (11.7-16.9); MCH 29.7 pg (25.7-33.7); MCHC 33.8 g/dl (32.0-35.9); MEAN CELL VOLUME 87.8 fl (80-96); MEAN PLT VOLUME 9.1 fl (7.5-11.1); PLATELET COUNT 170 10^3/uL (134-434); RBC 4.57 M/mm3 (4.00-5.60); RDW 13.4 % (11.9-15.9); WHITE BLOOD COUNT 16.4 K/mm3 (4.0-10.0)
[2020-10-11] MEDS ORDERED: morphine SULFATE 4 MG/ML VIAL IVPUSH PRN (09:19)
[2020-10-11 09:24] LABS: ALBUMIN 3.5 g/dl (3.4-5.0); CALCIUM 8.3 mg/dL (8.5-10.1)
[2020-10-11 09:26] LABS: BLOOD UREA NITROGEN 13.8 mg/dL (7-18); MAGNESIUM 1.9 mg/dL (1.8-2.4)
[2020-10-11 09:29] LABS: CREATININE 0.9 mg/dL (0.55-1.3)
[2020-10-11 09:30] LABS: BILIRUBIN,TOTAL 1.6 mg/dL (0.2-1)
[2020-10-11] MEDS: PANTOPRAZOLE SODIUM 40 MG VIAL IVPUSH SCH (09:30)
[2020-10-11] MEDS: ENOXAPARIN NA (PORCINE) 40 MG/0.4 ML DISP.SYRIN SQ SCH (09:30)
[2020-10-11 09:31] LABS: PHOSPHOROUS 2.2 mg/dL (2.5-4.9)
[2020-10-11] MEDS: CARVEDILOL 12.5 MG TABLET (FP) PO SCH ×2 (09:31→21:39)
[2020-10-11 09:33] LABS: TOT PROT 6.3 g/dl (6.4-8.2)
[2020-10-11] MEDS: oxyCODONE HCL 5 MG TABLET PO PRN ×2 (10:32→21:38)
[2020-10-11] MEDS ORDERED: PROCHLORPERAZINE INJECTION 10 MG/2 ML VIAL IVPB PRN (14:14)
[2020-10-11] MEDS ORDERED: PATIENT'S OWN MEDICATION (NON-FORMULARY) (Semaglutide [Ozempic] 0.25 MG/0.2 ML Pen.Injctr) SQ SCH (15:00)
[2020-10-11] MEDS ORDERED: PT OWN MED DRAWER 7, Y5N ONE ×2 (15:10→21:33)
[2020-10-11] MEDS: SODIUM CHLORIDE 1,000 ML IV SCH (15:36)
[2020-10-11] MEDS ORDERED: SODIUM PHOSPHATE - 30 MM in SODIUM CHLORIDE 500 ML IVPB ONE (16:00)
[2020-10-11] MEDS: hydrALAZINE HCL 50 MG TABLET (FP) PO SCH (21:39)
[2020-10-11] MEDS: ATORVASTATIN CA 10 MG TABLET (FP) PO SCH (21:39)
[2020-10-11] MEDS: OMEGA-3 ACID ETHYL ESTERS (FATTY-ACIDS) 1 GM CAPSULE (FP) PO SCH (21:40)
[2020-10-11] MEDS: ACETAMINOPHEN 325 MG TABLET (FP) PO PRN (21:41)
[2020-10-12] MEDS ORDERED: PIPERACILLIN/TAZOBACTAM 4.5 GM VIAL IVPB ONE ×3 (01:08→18:36)
[2020-10-12] MEDS ORDERED: DEXTROSE 5%-WATER 100 ML IVPB ONE ×3 (01:09→18:36)
[2020-10-12] MEDS: PIPERACILLIN/TAZOB 4.5 GM 4.5 GM in DEXTROSE 5%-WATER 100 ML IVPB SCH ×3 (01:15→18:40)
[2020-10-12] MEDS: hydrALAZINE HCL 50 MG TABLET (FP) PO SCH ×3 (05:35→22:17)
[2020-10-12] MEDS: INSULIN SLIDING SCALE (NOVOLOG) 1 VIAL SQ SCH ×4 (07:30→22:22)
[2020-10-12] MEDS ORDERED: PT OWN MED DRAWER 7, Y5N ONE ×2 (09:14→22:13)
[2020-10-12] MEDS: CARVEDILOL 12.5 MG TABLET (FP) PO SCH ×2 (09:22→22:17)
[2020-10-12] MEDS: HYDROCHLOROTHIAZIDE 25 MG TABLET (FP) PO SCH (09:23)
[2020-10-12] MEDS: VALSARTAN 160 MG TABLET PO SCH (09:23)
[2020-10-12] MEDS: PANTOPRAZOLE SODIUM 40 MG VIAL IVPUSH SCH (09:24)
[2020-10-12] MEDS: amLODIPine BESYLATE 10 MG TABLET (FP) PO SCH (09:24)
[2020-10-12] MEDS: OMEGA-3 ACID ETHYL ESTERS (FATTY-ACIDS) 1 GM CAPSULE (FP) PO SCH ×2 (09:24→22:16)
[2020-10-12] MEDS: ENOXAPARIN NA (PORCINE) 40 MG/0.4 ML DISP.SYRIN SQ SCH (09:24)
[2020-10-12] MEDS ORDERED: VALSARTAN PO SCH (10:00)
[2020-10-12] MEDS ORDERED: HCTHIAZID PO SCH (10:00)
[2020-10-12] MEDS ORDERED: PATIENT'S OWN MEDICATION (NON-FORMULARY) (Dapagliflozin Propanediol [Farxiga] 10 MG Tablet PO SCH (10:00)
[2020-10-12] MEDS ORDERED: AMLODIPINE PO SCH (10:00)
[2020-10-12] MEDS ORDERED: [UNRECOGNIZED DRUG - OTHER] PO SCH (10:00)
[2020-10-12 10:50] LABS: BASO % 0.5 % (0-2.0); EOS % 1.2 % (0-4.5); HEMATOCRIT 38.8 % (35.4-49); HEMOGLOBIN 13.1 GM/dL (11.7-16.9); LYMPH % 30.6 % (8-40); MCH 29.5 pg (25.7-33.7); MCHC 33.9 g/dl (32.0-35.9); MEAN CELL VOLUME 86.9 fl (80-96); MONO % 6.4 % (3.8-10.2); NEUT % 61.3 % (42.8-82.8); PLATELET COUNT 164 10^3/uL (134-434); RBC 4.46 M/mm3 (4.00-5.60); RDW 13.5 % (11.9-15.9); WHITE BLOOD COUNT 14.3 K/mm3 (4.0-10.0)
[2020-10-12 11:10] LABS: ALBUMIN 3.3 g/dl (3.4-5.0); CALCIUM 8.6 mg/dL (8.5-10.1)
[2020-10-12 11:13] LABS: CREATININE 0.8 mg/dL (0.55-1.3)
[2020-10-12 11:16] LABS: TOT PROT 6.2 g/dl (6.4-8.2)
[2020-10-12] MEDS: ACETAMINOPHEN 325 MG TABLET (FP) PO PRN (13:00)
[2020-10-12] MEDS: SODIUM CHLORIDE 1,000 ML IV SCH (16:42)
[2020-10-12] MEDS: ATORVASTATIN CA 10 MG TABLET (FP) PO SCH (22:17)
[2020-10-13] MEDS ORDERED: PIPERACILLIN/TAZOBACTAM 4.5 GM VIAL IVPB ONE ×2 (01:40→10:17)
[2020-10-13] MEDS ORDERED: DEXTROSE 5%-WATER 100 ML IVPB ONE ×2 (01:40→10:17)
[2020-10-13] MEDS: PIPERACILLIN/TAZOB 4.5 GM 4.5 GM in DEXTROSE 5%-WATER 100 ML IVPB SCH ×2 (01:52→10:36)
[2020-10-13] MEDS: INSULIN SLIDING SCALE (NOVOLOG) 1 VIAL SQ SCH ×2 (07:03→11:06)
[2020-10-13] MEDS: hydrALAZINE HCL 50 MG TABLET (FP) PO SCH (07:05)
[2020-10-13 09:30] VITALS: BP 122/67; PULSE 68; TEMP 98.7
[2020-10-13 10:24] LABS: CALCIUM 8.8 mg/dL (8.5-10.1)
[2020-10-13 10:25] LABS: BLOOD UREA NITROGEN 12.6 mg/dL (7-18)
[2020-10-13 10:28] LABS: CREATININE 0.9 mg/dL (0.55-1.3)
[2020-10-13] MEDS: VALSARTAN 160 MG TABLET PO SCH (10:35)
[2020-10-13] MEDS: HYDROCHLOROTHIAZIDE 25 MG TABLET (FP) PO SCH (10:35)
[2020-10-13] MEDS: CARVEDILOL 12.5 MG TABLET (FP) PO SCH (10:35)
[2020-10-13] MEDS: OMEGA-3 ACID ETHYL ESTERS (FATTY-ACIDS) 1 GM CAPSULE (FP) PO SCH (10:35)
[2020-10-13] MEDS: PANTOPRAZOLE SODIUM 40 MG VIAL IVPUSH SCH (10:36)
[2020-10-13] MEDS: ENOXAPARIN NA (PORCINE) 40 MG/0.4 ML DISP.SYRIN SQ SCH (10:36)
[2020-10-13] MEDS: amLODIPine BESYLATE 10 MG TABLET (FP) PO SCH (10:36)
[2020-10-13 10:43] LABS: HEMATOCRIT 40.3 % (35.4-49); HEMOGLOBIN 13.5 GM/dL (11.7-16.9); LYMPH % 34.9 % (8-40); MCH 29.5 pg (25.7-33.7); MCHC 33.4 g/dl (32.0-35.9); MEAN CELL VOLUME 88.1 fl (80-96); MEAN PLT VOLUME 8.9 fl (7.5-11.1); NEUT % 55.1 % (42.8-82.8); PLATELET COUNT 172 10^3/uL (134-434); RBC 4.57 M/mm3 (4.00-5.60); RDW 13.4 % (11.9-15.9); WHITE BLOOD COUNT 11.5 K/mm3 (4.0-10.0)
== END 2020-10-13 14:19 | disposition home or self-care (01) ==
LOC: JER 03:58 → INTOOBSV 06:12 → JERBED 06:12 → UNDOADMOB 06:12 → JERBED 10:57 → J6S 11:02 → JERBED 11:02
PROVIDERS: ADMIT Internal Medicine; ATTEND Student in an Organized Health Care Education/Training Program
PROC: 3E03329 Introduction of Other Anti-infective into Peripheral Vein, Percutaneous Approach (ICD-10-PCS; 2020-10-10)
PROC: 3E033NZ Introduction of Analgesics, Hypnotics, Sedatives into Peripheral Vein, Percutaneous Approach (ICD-10-PCS; 2020-10-10)
PROC: 3E0337Z Introduction of Electrolytic and Water Balance Substance into Peripheral Vein, Percutaneous Approach (ICD-10-PCS; 2020-10-10)
PROC: 3E033GC Introduction of Other Therapeutic Substance into Peripheral Vein, Percutaneous Approach (ICD-10-PCS; 2020-10-10)
PROC: 3E013GC Introduction of Other Therapeutic Substance into Subcutaneous Tissue, Percutaneous Approach (ICD-10-PCS; 2020-10-10)
PROC: 0DTJ4ZZ Resection of Appendix, Percutaneous Endoscopic Approach (ICD-10-PCS; principal; 2020-10-10 14:30)
DX: K35.891 Other acute appendicitis without perforation, with gangrene (principal); I10 Essential (primary) hypertension; I48.0 Paroxysmal atrial fibrillation; I45.81 Long QT syndrome; I44.7 Left bundle-branch block, unspecified; I42.8 Other cardiomyopathies; I11.9 Hypertensive heart disease without heart failure; I25.10 Atherosclerotic heart disease of native coronary artery without angina pectoris; E78.5 Hyperlipidemia, unspecified; E11.9 Type 2 diabetes mellitus without complications; E66.01 Morbid (severe) obesity due to excess calories; Z68.37 Body mass index [BMI] 37.0-37.9, adult; Z79.82 Long term (current) use of aspirin; Z98.61 Coronary angioplasty status
CPT/HCPCS: 36415; 44970; 74177-TC; 80048; 80053; 81003; 82962; 83036; 83690; 83735; 84100; 84484; 85025; 85027; 86850; 86900; 86901; 87040; 87086; 88304-TC; 93005; 93010; 94010; 94760; 96361; 96365; 96367; 96372; 96375; 96376; 97116-GP; 97161-GP; 99285-25; C9803; G0378; J0131; Q9967; U0003; U0005

== ENCOUNTER 2022-04-04 19:20 | Emergency (ER) | payer OTHER ==
[2022-04-04 19:43] VITALS: BP 138/86; PULSE 78; RESP 18; TEMP 97.8; BMI 36.6
== END 2022-04-04 21:37 | disposition home or self-care (01) ==
LOC: FER 19:20
DX: B37.42 Candidal balanitis (principal)
CPT/HCPCS: 81003; 81015; 87086; 99283-25

== ENCOUNTER 2023-01-24 16:34 | Emergency (ER) | payer OTHER ==
[2023-01-24 17:09] VITALS: BMI 35.2
[2023-01-24 17:35] LABS: HEMATOCRIT 44.4 % (35.4-49); HEMOGLOBIN 14.5 G/dL (11.7-16.9); MCH 29.5 pg (25.7-33.7); MCHC 32.7 g/dl (32.0-35.9); MEAN CELL VOLUME 90.2 fl (80-96); MEAN PLT VOLUME 9.5 fl (7.5-11.1); RBC 4.92 10^6/uL (4.00-5.60); RDW 14.7 % (11.9-15.9)
[2023-01-24 17:51] LABS: WHITE BLOOD COUNT 64.5 10^3/uL (4.0-10.8)
[2023-01-24 17:52] LABS: ALBUMIN 4.6 g/dl (3.4-5.0); BILIRUBIN,TOTAL 0.6 mg/dl (0.2-1); BLOOD UREA NITROGEN 23.6 mg/dl (7-18); CALCIUM 9.7 mg/dl (8.5-10.1); CREATININE 1.2 mg/dl (0.6-1.3); POTASSIUM 4.4 mmol/L (3.5-5.1); SGPT/ALT 30.6 U/L (7-52); TOT PROT 6.4 g/dl (6.4-8.2)
[2023-01-24 18:03] LABS: PLATELET ESTIMATE SLT DECREASE
[2023-01-24] MEDS ORDERED: ACETAMINOPHEN 1000 MG/100 ML BAG IVPB ONE (18:58)
[2023-01-24] MEDS ORDERED: ACETAMINOPHEN INJECTION 100 ML IVPB ONE (19:06)
[2023-01-24 19:49] VITALS: BP 118/63; PULSE 72; RESP 16; TEMP 98.8
== END 2023-01-24 20:40 | disposition home or self-care (01) ==
LOC: FER 16:34
DX: R10.32 Left lower quadrant pain (principal); R59.0 Localized enlarged lymph nodes
CPT/HCPCS: 36415; 74177-TC; 80053; 81003; 83605; 83690; 84484; 85027; 93005; 99285-25; Q9967

== ENCOUNTER 2024-02-13 19:08 | Emergency (ER) | payer OTHER ==
[2024-02-13 19:12] VITALS: BP 150/74; PULSE 76; RESP 18; TEMP 97.9; BMI 33.2
[2024-02-13 21:26] LABS: INR 1.09 (0.83-1.09); PROTHROMBIN TIME (PATIENT) 12.3 SEC (9.7-13.0)
[2024-02-13 21:35] LABS: CALCIUM 8.8 mg/dL (8.5-10.1); POTASSIUM 5.1 mmol/L (3.5-5.1)
[2024-02-13 21:36] LABS: ALBUMIN 3.8 g/dl (3.4-5.0); BLOOD UREA NITROGEN 20.5 mg/dL (7-18); MAGNESIUM 2.1 mg/dL (1.8-2.4)
[2024-02-13 21:39] LABS: CREATININE 1.1 mg/dL (0.55-1.3)
[2024-02-13 21:42] LABS: BILIRUBIN,TOTAL 0.5 mg/dL (0.2-1); TOT PROT 6.3 g/dl (6.4-8.2)
[2024-02-13 22:15] LABS: HEMOGLOBIN 11.5 GM/dL (11.7-16.9); MCH 29.1 pg (25.7-33.7); MCHC 31.1 g/dl (32.0-35.9); MEAN CELL VOLUME 93.7 fl (80-96); MEAN PLT VOLUME 9.3 fl (7.5-11.1); PLATELET COUNT 91 10^3/uL (134-434); RBC 3.95 M/mm3 (4.00-5.60); RDW 16.1 % (11.9-15.9)
[2024-02-14 08:33] LABS: ANISOCYTOSIS 0; HELMET CELLS 0; HOWELL-JOLLY BODIES 0; MACROCYTOSIS 0; OVALOCYTE 0; ROULEAU 0; SICKELED CELLS 0; TARGET CELLS 0; TEAR DROP CELLS 0; TOXIC GRANULATION 0
== END 2024-02-13 23:51 | disposition home or self-care (01) ==
LOC: JER 19:08
DX: R07.89 Other chest pain (principal)
CPT/HCPCS: 36415; 71046-TC-FY; 80053; 83735; 84484; 85025; 85610; 85730; 93005; 93010; 99285-25

== ENCOUNTER 2024-06-07 11:50 | Observation (INO) | payer OTHER ==
[2024-06-07] MEDS ORDERED: ACETAMINOPHEN 325 MG TABLET (FP) ONE (12:47)
[2024-06-07] MEDS: ACETAMINOPHEN 500 MG TABLET (FP) PO ONE (12:50)
[2024-06-07 13:24] VITALS: BMI 32.5
[2024-06-07 13:51] LABS: HEMATOCRIT 45.8 % (35.4-49); HEMOGLOBIN 14.7 GM/dL (11.7-16.9); MCH 27.7 pg (25.7-33.7); MCHC 32.1 g/dl (32.0-35.9); MEAN CELL VOLUME 86.3 fl (80-96); MEAN PLT VOLUME 9.1 fl (7.5-11.1); PLATELET COUNT 105 10^3/uL (134-434); RBC 5.31 M/mm3 (4.00-5.60); RDW 16.4 % (11.9-15.9)
[2024-06-07 13:55] LABS: WHITE BLOOD COUNT 44.3 K/mm3 (4.0-10.0)
[2024-06-07 13:59] LABS: INR 1.05 (0.83-1.09); PROTHROMBIN TIME (PATIENT) 11.5 SEC (9.7-13.0)
[2024-06-07 14:02] LABS: ACTIVATED PTT 29.6 SECONDS (25.2-36.5)
[2024-06-07 14:11] LABS: POTASSIUM 4.2 mmol/L (3.5-5.1)
[2024-06-07 14:12] LABS: ALBUMIN 4.2 g/dl (3.4-5.0); CALCIUM 9.3 mg/dL (8.5-10.1)
[2024-06-07 14:13] LABS: MAGNESIUM 1.9 mg/dL (1.8-2.4)
[2024-06-07 14:16] LABS: CREATININE 1.1 mg/dL (0.55-1.3)
[2024-06-07 14:18] LABS: BILIRUBIN,TOTAL 0.5 mg/dL (0.2-1); TOT PROT 6.9 g/dl (6.4-8.2)
[2024-06-07 14:54] LABS: ANISOCYTOSIS 0; HELMET CELLS 0; HOWELL-JOLLY BODIES 0; MACROCYTOSIS 0; OVALOCYTE 0; ROULEAU 0; SICKELED CELLS 0; TARGET CELLS 0; TEAR DROP CELLS 0; TOXIC GRANULATION 0
[2024-06-07] MEDS ORDERED: ACYCLOVIR 200 MG CAPSULE ONE ×2 (21:32→21:41)
[2024-06-07] MEDS: ACYCLOVIR 400 MG TABLET PO SCH (21:33)
[2024-06-07] MEDS ORDERED: CARVEDILOL 25 MG TABLET (FP) ONE (21:33)
[2024-06-07] MEDS: CARVEDILOL 25 MG TABLET (FP) PO SCH (21:33)
[2024-06-07] MEDS ORDERED: PATIENT'S OWN MEDICATION (NON-FORMULARY) (Zanubrutinib [Brukinsa] 80 MG Capsule) PO SCH (22:00)
[2024-06-07] MEDS ORDERED: PATIENT'S OWN MEDICATION (NON-FORMULARY) (Omega-3 Fatty Acids [Omega-3] 1,000 MG Capsule) PO SCH (22:00)
[2024-06-08 05:58] VITALS: RESP 18; TEMP 97.8
[2024-06-08 08:10] LABS: HEMATOCRIT 42.1 % (35.4-49); HEMOGLOBIN 13.9 GM/dL (11.7-16.9); MCH 28.2 pg (25.7-33.7); MCHC 32.9 g/dl (32.0-35.9); MEAN CELL VOLUME 85.8 fl (80-96); MEAN PLT VOLUME 9.4 fl (7.5-11.1); PLATELET COUNT 100 10^3/uL (134-434); RBC 4.91 M/mm3 (4.00-5.60); RDW 16.3 % (11.9-15.9)
[2024-06-08 08:20] LABS: POTASSIUM 3.4 mmol/L (3.5-5.1)
[2024-06-08 08:32] LABS: ALBUMIN 3.8 g/dl (3.4-5.0); BLOOD UREA NITROGEN 16.8 mg/dL (7-18)
[2024-06-08 08:35] LABS: CALCIUM 8.5 mg/dL (8.5-10.1); CREATININE 1.1 mg/dL (0.55-1.3)
[2024-06-08 08:37] LABS: BILIRUBIN,TOTAL 0.7 mg/dL (0.2-1); MAGNESIUM 1.8 mg/dL (1.8-2.4); PHOSPHOROUS 3.4 mg/dL (2.5-4.9); TOT PROT 6.2 g/dl (6.4-8.2)
[2024-06-08 09:09] VITALS: BP 137/83; PULSE 68
[2024-06-08] MEDS: ASPIRIN 325 MG ENTERIC COATED TABLET (FP) PO SCH (09:09)
[2024-06-08] MEDS: ALLOPURINOL 300 MG TABLET (FP) PO SCH (09:09)
[2024-06-08] MEDS ORDERED: ENOXAPARIN NA (PORCINE) 40 MG/0.4 ML DISP.SYRIN SQ SCH (10:00)
[2024-06-08] MEDS ORDERED: LEVOTHYROXINE NA 25 MCG TABLET (FP) PO SCH (10:00)
[2024-06-08] MEDS ORDERED: VALSARTAN 160 MG TABLET PO SCH (10:00)
[2024-06-08] MEDS ORDERED: ATORVASTATIN CA 10 MG TABLET (FP) PO SCH (22:00)
== END 2024-06-08 09:30 | disposition home or self-care (01) ==
LOC: JER 11:50 → JERBED 16:51
PROVIDERS: ADMIT Internal Medicine; ATTEND Internal Medicine
DX: R07.89 Other chest pain (principal); I11.9 Hypertensive heart disease without heart failure; I50.20 Unspecified systolic (congestive) heart failure; I48.0 Paroxysmal atrial fibrillation; C91.10 Chronic lymphocytic leukemia of B-cell type not having achieved remission; E11.9 Type 2 diabetes mellitus without complications; I44.7 Left bundle-branch block, unspecified; E03.9 Hypothyroidism, unspecified; Z90.49 Acquired absence of other specified parts of digestive tract; E78.2 Mixed hyperlipidemia
CPT/HCPCS: 36415; 71045-TC-FY; 71275-TC; 80053; 80061; 83735; 84100; 84436; 84443; 84484; 85025; 85027; 85610; 85730; 93005; 93010; 99285-25; G0378; Q9967